=== PATIENT | male | born 1985 | race Caucasian/White ===

== ENCOUNTER 2023-11-06 20:56 | Emergency (ER) | payer SELFPAY ==
[~2023-11-06] VITALS: Ht 175.3 cm; Wt 86.4 kg
[2023-11-06 20:56] VITALS: TEMP 99.9
[2023-11-06 21:54] LABS: RSV AMPLIFICATION NEGATIVE (NEGATIVE)
[2023-11-07] MEDS: NS 1,000 ML IV ONE (00:11)
[2023-11-07] MEDS: ALBUTEROL 90 MCG/ACT 8GM HFA INHALER INH ONE (00:24)
[2023-11-07 00:27] LABS: BASO # 0.1 10^3/uL (0.0-0.2); BASO % 0.8 % (0.0-1.0); EOS # 0.1 10^3/uL (0.0-0.5); EOS % 1.4 % (0.0-3.0); HEMATOCRIT 42.3 % (42.0-52.0); HEMOGLOBIN 15.4 g/dl (13.5-17.5); LYMPH # 1.7 10^3/uL (1.5-5.0); LYMPH % 20.4 % (24.0-44.0); MEAN CORPUSCULAR HEMOGLOBIN 33.8 pg (27.0-33.0); MEAN CORPUSCULAR HGB CONC 36.4 g/dl (32.0-36.5); MEAN CORPUSCULAR VOLUME 92.8 fl (80.0-96.0); MONO # 0.8 10^3/uL (0.0-0.8); NEUTROPHILS # 5.7 10^3/uL (1.5-8.5); NEUTROPHILS % 67.3 % (36.0-66.0); PLATELET COUNT, AUTOMATED 278 10^3/uL (150-450); RED BLOOD COUNT 4.56 10^6/uL (4.30-6.10); WHITE BLOOD COUNT 8.5 10^3/uL (4.0-10.0)
[2023-11-07 00:59] LABS: BLOOD UREA NITROGEN 12 MG/DL (9-23); CALCIUM LEVEL 8.3 MG/DL (8.5-10.1); CARBON DIOXIDE LEVEL 28 MMOL/L (20-31); CHLORIDE LEVEL 105 MMOL/L (98-107); CREATININE FOR GFR 0.91 MG/DL (0.70-1.30); GLOMERULAR FILTRATION RATE > 60.0 (>60); GLUCOSE, FASTING 91 MG/DL (60-100); POTASSIUM SERUM 4.6 MMOL/L (3.5-5.1); SODIUM LEVEL 135 MMOL/L (136-145)
[2023-11-07] MEDS ORDERED: VENTAER INH (01:07)
[2023-11-07 01:52] VITALS: BP 159/98; O2SAT 97
== END 2023-11-07 02:38 | disposition home or self-care (01) ==
LOC: M ED 20:56
DX: U07.1 COVID-19 (principal); F17.200 Nicotine dependence, unspecified, uncomplicated; Z79.52 Long term (current) use of systemic steroids

== ENCOUNTER 2023-11-09 21:31 | Emergency (ER) | payer SELFPAY ==
[~2023-11-09 21:31] MED LIST: VENTAER INH
[2023-11-09] MEDS: methylPREDNISolone 125MG 2ML VIAL IV ONE (22:21)
[2023-11-09 22:37] LABS: BASO % 0.3 % (0.0-1.0); EOS # 0.1 10^3/uL (0.0-0.5); EOS % 1.9 % (0.0-3.0); HEMATOCRIT 46.9 % (42.0-52.0); HEMOGLOBIN 16.3 g/dl (13.5-17.5); LYMPH # 2.1 10^3/uL (1.5-5.0); LYMPH % 28.4 % (24.0-44.0); MEAN CORPUSCULAR HEMOGLOBIN 31.2 pg (27.0-33.0); MEAN CORPUSCULAR HGB CONC 34.8 g/dl (32.0-36.5); MEAN CORPUSCULAR VOLUME 89.8 fl (80.0-96.0); MONO # 0.6 10^3/uL (0.0-0.8); MONO % 7.5 % (2.0-8.0); NEUTROPHILS # 4.6 10^3/uL (1.5-8.5); NEUTROPHILS % 61.6 % (36.0-66.0); PLATELET COUNT, AUTOMATED 276 10^3/uL (150-450); RED BLOOD COUNT 5.22 10^6/uL (4.30-6.10); WHITE BLOOD COUNT 7.4 10^3/uL (4.0-10.0)
[2023-11-09] MEDS ORDERED: ISOVUE-370 76% 100ML VIAL As Ordered ONE (22:48)
[2023-11-09 22:59] LABS: CK-MB VALUE MASS < 1.0 NG/ML (<3.6)
[2023-11-09 23:03] LABS: THYROID STIMULATING HORMONE 2.389 uIU/ML (0.55-4.78); THYROXINE (T4) 9.9 UG/DL (4.5-10.9)
[2023-11-09 23:04] LABS: ALBUMIN 4.6 G/DL (3.2-5.2); ALKALINE PHOSPHATASE 101 U/L (46-116); ALT/SGPT 35 U/L (7.0-40); AST/SGOT 14 U/L (<34); BILIRUBIN,DIRECT 0.2 MG/DL (<0.4); BILIRUBIN,TOTAL 0.9 MG/DL (0.3-1.2); BLOOD UREA NITROGEN 15 MG/DL (9-23); CALCIUM LEVEL 9.6 MG/DL (8.5-10.1); CARBON DIOXIDE LEVEL 24 MMOL/L (20-31); CHLORIDE LEVEL 107 MMOL/L (98-107); CPK CREATINE PHOSPHOKINASE 115 U/L (46-171); CREATININE FOR GFR 0.91 MG/DL (0.70-1.30); GLOMERULAR FILTRATION RATE > 60.0 (>60); GLUCOSE, FASTING 91 MG/DL (60-100); MB/CK RELATIVE INDEX 0.86 (< OR =4); POTASSIUM SERUM 3.9 MMOL/L (3.5-5.1); SODIUM LEVEL 139 MMOL/L (136-145); TOTAL PROTEIN 7.7 G/DL (5.7-8.2)
[2023-11-09 23:23] VITALS: BP 150/90; TEMP 98; O2SAT 98
[2023-11-09] MEDS: KETOROLAC 30 MG/ML 1ML VIAL IV ONE (23:35)
[2023-11-09] MEDS: LORazepam 2 MG/ML 1ML VIAL IV STA (23:35)
== END 2023-11-10 01:19 | disposition home or self-care (01) ==
LOC: M ED 21:31
DX: R07.89 Other chest pain (principal); F41.9 Anxiety disorder, unspecified; I51.7 Cardiomegaly; R00.0 Tachycardia, unspecified; F17.200 Nicotine dependence, unspecified, uncomplicated; Z79.52 Long term (current) use of systemic steroids
CPT/HCPCS: 71045; 71275; 80047; 80048; 80076; 82550; 82553; 84436; 84443; 84484; 85025; 93005; 93041; 94760; 96374; 96375; 99284; J1885; J2060; J2919; Q9967

== ENCOUNTER 2024-03-15 01:35 | Inpatient (IN) | payer SELFPAY ==
[~2024-03-15] VITALS: Ht 175.3 cm; Wt 84.1 kg
[2024-03-15 02:30] LABS: HEMATOCRIT 48.7 % (42.0-52.0); HEMOGLOBIN 16.5 g/dl (13.5-17.5); MEAN CORPUSCULAR HEMOGLOBIN 30.7 pg (27.0-33.0); MEAN CORPUSCULAR HGB CONC 33.9 g/dl (32.0-36.5); MEAN CORPUSCULAR VOLUME 90.5 fl (80.0-96.0); PLATELET COUNT, AUTOMATED 287 10^3/uL (150-450); RED BLOOD COUNT 5.38 10^6/uL (4.30-6.10); WHITE BLOOD COUNT 13.9 10^3/uL (4.0-10.0)
[2024-03-15 02:53] LABS: ETHYL ALCOHOL (ETHANOL) 0.005 % (0.000-0.010)
[2024-03-15 02:54] LABS: SALICYLATE LEVEL < 3.0 MG/DL (<30)
[2024-03-15 02:55] LABS: ALBUMIN 4.3 G/DL (3.2-5.2); ALKALINE PHOSPHATASE 96 U/L (40-129); ALT/SGPT 17 U/L (7.0-40); AST/SGOT 10 U/L (<34); BILIRUBIN,DIRECT 0.1 MG/DL (<0.4); BILIRUBIN,TOTAL 0.4 MG/DL (0.3-1.2); BLOOD UREA NITROGEN 14 MG/DL (9-23); CALCIUM LEVEL 9.3 MG/DL (8.5-10.1); CARBON DIOXIDE LEVEL 26 MMOL/L (20-31); CHLORIDE LEVEL 107 MMOL/L (98-107); CREATININE FOR GFR 0.96 MG/DL (0.70-1.30); GLOMERULAR FILTRATION RATE > 60.0 (>60); GLUCOSE, FASTING 96 MG/DL (60-100); POTASSIUM SERUM 4.3 MMOL/L (3.5-5.1); SODIUM LEVEL 142 MMOL/L (136-145); TOTAL PROTEIN 7.4 G/DL (5.7-8.2)
[2024-03-15 02:57] LABS: THYROID STIMULATING HORMONE 2.477 uIU/ML (0.55-4.78)
[2024-03-15 03:15] LABS: BARBITURATES URINE NEGATIVE (NEGATIVE); BENZODIAZEPINES URINE NEGATIVE (NEGATIVE); COCAINE METABOLITE URINE NEGATIVE (NEGATIVE)
[2024-03-15] MEDS ORDERED: HOME MED LIST COMPLETE! XX SCH (03:15)
[2024-03-15 03:16] LABS: CANNABINOIDS URINE NEGATIVE (NEGATIVE); METHADONE URINE NEGATIVE (NEGATIVE); OPIATES URINE NEGATIVE (NEGATIVE); PHENCYCLIDINE URINE NEGATIVE (NEGATIVE)
[2024-03-15 03:18] LABS: AMPHETAMINES LEVEL URINE POSITIVE (NEGATIVE)
[2024-03-15] MEDS ORDERED: HALOPERIDOL LACTATE 5MG/ML VIAL IM ONE (07:25)
[2024-03-15] MEDS ORDERED: LORazepam 2 MG/ML 1ML VIAL IM ONE (07:25)
[2024-03-15] MEDS ORDERED: diphenhydrAMINE 50MG/ML VIAL IM ONE (07:25)
[2024-03-15] MEDS: OLANZapine ORAL DISINTEGRATING TAB 5MG PO ONE (07:49)
[2024-03-15] MEDS: LORazepam 2 MG TAB PO STA (07:49)
[2024-03-15 14:38] VITALS: BP 130/56; TEMP 98.6; O2SAT 96
== END 2024-03-15 17:40 | disposition home or self-care (01) | DRG 751 ==
LOC: M ED 01:35 → M ED INP 14:07 → M PSY 16:05
PROVIDERS: ADMIT Psychiatry & Neurology Psychiatry; ATTEND Psychiatry & Neurology Psychiatry
DX: F29 Unspecified psychosis not due to a substance or known physiological condition (principal); F12.90 Cannabis use, unspecified, uncomplicated; F60.2 Antisocial personality disorder; F15.90 Other stimulant use, unspecified, uncomplicated

== ENCOUNTER 2024-04-08 03:13 | Emergency (ER) | payer SELFPAY ==
[~2024-04-08] VITALS: Ht 175.3 cm; Wt 98.2 kg
[2024-04-08 06:48] VITALS: BP 144/92; TEMP 98.5; O2SAT 99
== END 2024-04-08 07:29 | disposition left against medical advice (07) ==
LOC: EDBD 03:13 → M ED 03:13
DX: Z53.21 Procedure and treatment not carried out due to patient leaving prior to being seen by health care provider (principal)